=== PATIENT | male | born 1940 | race African-American/Black ===

== ENCOUNTER 2016-12-11 17:58 | Inpatient (IN) | payer MEDICARE ==
[~2016-12-11] VITALS: Ht 185.4 cm; Wt 67.3 kg
[2016-12-11] MEDS ORDERED: PANT40TA25 PO (18:42)
[2016-12-11] MEDS ORDERED: RANI150T7 PO (18:42)
[2016-12-11] MEDS ORDERED: METO25 PO (18:42)
[2016-12-11] MEDS ORDERED: LORazepam 2 MG/ML VIAL IM ONE (19:00)
[2016-12-11] MEDS ORDERED: HALOPERIDOL LACTATE 5 MG/ML VIAL IM ONE (19:00)
[2016-12-11] MEDS ORDERED: DiphenhydrAMINE HCL 50 MG/ML VIAL IM ONE (19:00)
[2016-12-11 19:14] LABS: BASOPHILS # (AUTO) 0.09 K/uL (0.00-0.20); EOSINOPHILS # (AUTO) 0.01 K/uL (0.00-0.70); EOSINOPHILS % (AUTO) 0.12 % (1.0-6.0); HEMATOCRIT 40.7 % (41-53); HEMOGLOBIN 14.1 g/dL (13.5-17.5); LYMPHOCYTES # (AUTO) 0.9 K/uL (1.0-4.8); LYMPHOCYTES % (AUTO) 10.8 % (22.0-44.0); MEAN CORPUSCULAR HGB CONC 34.6 G/dL (31.0-37.0); MEAN CORPUSCULAR VOLUME 84 fL (80-100); MONOCYTES # (AUTO) 0.7 K/uL (0.1-1.0); MONOCYTES % (AUTO) 8.7 % (2.0-9.0); NEUTROPHILS # (AUTO) 6.8 K/uL (1.8-7.7); NEUTROPHILS % (AUTO) 79.4 % (40.0-70.0); PLATELET COUNT (AUTO) 326 K/uL (150-450); RED BLOOD CELL COUNT(AUTO) 4.85 MIL/uL (4.50-5.90); RED CELL DISTRIBUTION WIDTH 14.3 % (11.5-14.5); WHITE BLOOD COUNT (AUTO) 8.6 K/uL (4.5-11.0)
[2016-12-11 19:26] LABS: ANION GAP 14 mmol/L (8-16); CALCIUM, TOTAL 8.9 mg/dL (8.8-10.5); CARBON DIOXIDE 23 mmol/L (22-29); CHLORIDE 99 mmol/L (98-107); CREATININE 1.69 mg/dL (0.60-1.30); GLOMERULAR FILTR. RATE CALC 48 mL/min (>60); POTASSIUM 4.3 mmol/L (3.5-5.1); SODIUM SERUM 136 mmol/L (136-145); UREA NITROGEN, BLOOD 39 mg/dL (7-18)
[2016-12-11 19:34] LABS: ALANINE AMINOTRANSFERASE 150 U/L (12-78); ASPARTATE AMINOTRANSFERASE 202 U/L (15-37); TOTAL PROTEIN, SERUM 8.2 g/dL (6.4-8.2)
[2016-12-11 21:05] LABS: APPEARANCE,URINE SLIGHTLY CLOUDY (CLEAR)
[2016-12-11 21:06] LABS: PH,URINE 5.5 (5.0-8.0)
[2016-12-11 21:07] LABS: ADD UA MICROSCOPIC YES; GLUCOSE, URINE (UA) NEGATIVE (NEGATIVE); KETONES,URINE 15 mg/dL (NEGATIVE); LEUKOCYTE ESTERASE ,URINE NEGATIVE (NEGATIVE); OCCULT BLOOD,URINE LARGE (NEGATIVE); PROTEIN,URINE TRACE (NEGATIVE)
[2016-12-11 21:17] LABS: HYALINE CASTS, URINE 0-2 /LPF (None Seen); RBC,URINE 51-100 /HPF (0-2)
[2016-12-11 21:28] LABS: WBC,URINE 0-2 /HPF (0-5)
[2016-12-11 22:49] LABS: LACTIC ACID 2.1 mmol/L (0.4-2.0)
[2016-12-11] MEDS ORDERED: CefTRIAXone SODIUM 2 GM in DEXTROSE 5%-WATER 50 ML IV ONE (23:15)
[2016-12-11] MEDS ORDERED: SODIUM CHLORIDE 0.9% 1,000 ML IV ONE (23:15)
[2016-12-11 23:55] LABS: REFLEX LACTIC ACID? YES YES
[2016-12-12] MEDS ORDERED: MAGNESIUM HYDROXIDE SUSPENSION 30 ML UDCUP PO PRN (05:30)
[2016-12-12] MEDS ORDERED: ONDANSETRON HCL 4 MG/2 ML VIAL IVP PRN (05:30)
[2016-12-12] MEDS ORDERED: OxyCODONE HCL/ACETAMINOPHEN 5-325 MG TABLET PO PRN (05:30)
[2016-12-12] MEDS ORDERED: BISACODYL 10 MG RECTAL RECTAL SUPPOSITORY PR PRN (05:30)
[2016-12-12] MEDS ORDERED: ACETAMINOPHEN 325 MG TABLET PO PRN (05:30)
[2016-12-12] MEDS: HEPARIN SODIUM,PORCINE 5,000 UNITS/ML VIAL SQ SCH ×2 (08:25→20:35)
[2016-12-12] MEDS: PANTOPRAZOLE SODIUM 40 MG DR TABLET PO SCH (08:25)
[2016-12-12 08:57] LABS: GLUCOSE,POINT OF CARE 112 MG/DL (70-110)
[2016-12-12 09:30] VITALS: BP 134/80
[2016-12-12 11:15] VITALS: BP 131/81
[2016-12-12] MEDS: METOPROLOL TARTRATE 25 MG TABLET PO SCH ×2 (11:18→20:26)
[2016-12-12] MEDS: NICOTINE 21 MG/24 HOUR PATCH TD SCH (11:18)
[2016-12-12 16:00] VITALS: BP 117/80
[2016-12-12 20:07] VITALS: BP 148/92
[2016-12-12] MEDS ORDERED: SODIUM CHLORIDE 0.9% 250 ML IV ONE (23:11)
[2016-12-12] MEDS: CefTRIAXone 1 GM/DEXTROSE 50 ML IV SCH (23:24)
[2016-12-12 23:59] VITALS: BP 119/64
[2016-12-13 05:21] VITALS: BP 126/75
[2016-12-13 06:56] LABS: BASOPHILS # (AUTO) 0.02 K/uL (0.00-0.20); BASOPHILS % (AUTO) 0.5 % (0.0-2.0); EOSINOPHILS % (AUTO) 1.97 % (1.0-6.0); HEMOGLOBIN 11.7 g/dL (13.5-17.5); LYMPHOCYTES # (AUTO) 1.2 K/uL (1.0-4.8); LYMPHOCYTES % (AUTO) 23.9 % (22.0-44.0); MEAN CORPUSCULAR HEMOGLOBIN 28.2 pg (26.0-34.0); MEAN CORPUSCULAR HGB CONC 33.3 G/dL (31.0-37.0); MEAN CORPUSCULAR VOLUME 85 fL (80-100); MONOCYTES # (AUTO) 0.6 K/uL (0.1-1.0); MONOCYTES % (AUTO) 12.3 % (2.0-9.0); NEUTROPHILS % (AUTO) 61.4 % (40.0-70.0); PLATELET COUNT (AUTO) 309 K/uL (150-450); RED BLOOD CELL COUNT(AUTO) 4.13 MIL/uL (4.50-5.90); RED CELL DISTRIBUTION WIDTH 14.6 % (11.5-14.5); WHITE BLOOD COUNT (AUTO) 4.9 K/uL (4.5-11.0)
[2016-12-13 07:19] LABS: ALANINE AMINOTRANSFERASE 101 U/L (12-78); ALBUMIN 2.2 g/dL (3.4-5.0); ANION GAP 7 mmol/L (8-16); ASPARTATE AMINOTRANSFERASE 91 U/L (15-37); BILIRUBIN,TOTAL 0.5 mg/dL (0.1-1.0); CALCIUM, TOTAL 8.1 mg/dL (8.8-10.5); CARBON DIOXIDE 24 mmol/L (22-29); CHLORIDE 107 mmol/L (98-107); CREATININE 1.11 mg/dL (0.60-1.30); GLOMERULAR FILTR. RATE CALC > 60 mL/min (>60); PHOSPHORUS 2.6 mg/dL (2.5-4.9); POTASSIUM 4.4 mmol/L (3.5-5.1); SODIUM SERUM 138 mmol/L (136-145); TOTAL PROTEIN, SERUM 6.5 g/dL (6.4-8.2); UREA NITROGEN, BLOOD 18 mg/dL (7-18)
[2016-12-13 07:38] VITALS: BP 123/71
[2016-12-13] MEDS: METOPROLOL TARTRATE 25 MG TABLET PO SCH ×2 (08:34→21:01)
[2016-12-13] MEDS: PANTOPRAZOLE SODIUM 40 MG DR TABLET PO SCH (08:34)
[2016-12-13] MEDS: HEPARIN SODIUM,PORCINE 5,000 UNITS/ML VIAL SQ SCH ×2 (08:36→21:02)
[2016-12-13] MEDS: NICOTINE 21 MG/24 HOUR PATCH TD SCH (09:00)
[2016-12-13 11:52] VITALS: BP 121/73
[2016-12-13 15:29] VITALS: BP 142/79
[2016-12-13 20:07] VITALS: BP 128/66
[2016-12-13 23:15] VITALS: BP 120/69
[2016-12-13] MEDS: CefTRIAXone 1 GM/DEXTROSE 50 ML IV SCH (23:59)
[2016-12-14 05:39] VITALS: BP 131/72
[2016-12-14 09:00] VITALS: BP 112/68
[2016-12-14] MEDS: NICOTINE 21 MG/24 HOUR PATCH TD SCH (09:20)
[2016-12-14] MEDS: HEPARIN SODIUM,PORCINE 5,000 UNITS/ML VIAL SQ SCH ×2 (09:20→20:08)
[2016-12-14] MEDS: PANTOPRAZOLE SODIUM 40 MG DR TABLET PO SCH (09:20)
[2016-12-14] MEDS: METOPROLOL TARTRATE 25 MG TABLET PO SCH ×2 (09:20→20:07)
[2016-12-14 12:06] VITALS: BP 109/70
[2016-12-14 15:04] LABS: HEPATITIS Bs ANTIGEN SCREEN P Negative (Negative); HEPATITIS C AB SCREEN <0.1 s/co ratio (0.0-0.9)
[2016-12-14 16:06] VITALS: BP 117/67
[2016-12-14] MEDS ORDERED: SODIUM CHLORIDE 3% 15 ML NEB SOLUTION NEB ONE (17:17)
[2016-12-14 20:00] VITALS: BP 109/68
[2016-12-14] MEDS: CefTRIAXone 1 GM/DEXTROSE 50 ML IV SCH (23:02)
[2016-12-14 23:21] VITALS: BP 107/61
[2016-12-15] MEDS ORDERED: 0.9% SODIUM CHLORIDE 5 ML NEB SOLUTION NEB ONE (04:51)
[2016-12-15 04:53] VITALS: BP 132/87
[2016-12-15] MEDS: ALBUTEROL SULFATE 2.5 MG/0.5 ML NEB SOLUTION NEB PRN ×2 (05:12→22:30)
[2016-12-15] MEDS: IPRATROPIUM BROMIDE 0.5 MG/2.5 ML NEB SOLUTION NEB PRN ×2 (05:12→22:30)
[2016-12-15 07:10] VITALS: BP 114/62
[2016-12-15] MEDS: PANTOPRAZOLE SODIUM 40 MG DR TABLET PO SCH (08:40)
[2016-12-15] MEDS: METOPROLOL TARTRATE 25 MG TABLET PO SCH ×2 (08:40→20:19)
[2016-12-15] MEDS: HEPARIN SODIUM,PORCINE 5,000 UNITS/ML VIAL SQ SCH ×2 (08:40→20:19)
[2016-12-15] MEDS: NICOTINE 21 MG/24 HOUR PATCH TD SCH (08:40)
[2016-12-15 11:15] VITALS: BP 124/71
[2016-12-15 16:09] VITALS: BP 123/77
[2016-12-15] MEDS: HYDROCORTISONE 0.5% 30 GM CREAM TP PRN (17:59)
[2016-12-15 20:00] VITALS: BP 119/77
[2016-12-15] MEDS ORDERED: SODIUM CHLORIDE 3% 15 ML NEB SOLUTION NEB ONE (22:16)
[2016-12-15] MEDS: CefTRIAXone 1 GM/DEXTROSE 50 ML IV SCH (23:03)
[2016-12-16] VITALS: BP 119/62
[2016-12-16 03:01] VITALS: BP 122/77
[2016-12-16] MEDS: PANTOPRAZOLE SODIUM 40 MG DR TABLET PO SCH (08:17)
[2016-12-16] MEDS: METOPROLOL TARTRATE 25 MG TABLET PO SCH ×2 (08:17→20:56)
[2016-12-16] MEDS: HEPARIN SODIUM,PORCINE 5,000 UNITS/ML VIAL SQ SCH ×2 (08:17→20:56)
[2016-12-16] MEDS: HYDROCORTISONE 0.5% 30 GM CREAM TP PRN (08:20)
[2016-12-16] MEDS: NICOTINE 21 MG/24 HOUR PATCH TD SCH (08:26)
[2016-12-16 08:29] VITALS: BP 157/89
[2016-12-16 11:15] VITALS: BP 133/71
[2016-12-16 16:04] VITALS: BP 144/74
[2016-12-16] MEDS: CefTRIAXone 1 GM/DEXTROSE 50 ML IV SCH (22:21)
[2016-12-17 00:08] VITALS: BP 112/65
[2016-12-17 04:29] VITALS: BP 129/78
[2016-12-17 07:22] VITALS: BP 155/94
[2016-12-17] MEDS: HEPARIN SODIUM,PORCINE 5,000 UNITS/ML VIAL SQ SCH ×2 (08:06→21:06)
[2016-12-17] MEDS: METOPROLOL TARTRATE 25 MG TABLET PO SCH ×2 (08:06→21:06)
[2016-12-17] MEDS: PANTOPRAZOLE SODIUM 40 MG DR TABLET PO SCH (08:06)
[2016-12-17] MEDS: NICOTINE 21 MG/24 HOUR PATCH TD SCH (09:00)
[2016-12-17 11:36] VITALS: BP 119/72
[2016-12-17 15:20] VITALS: BP 119/63
[2016-12-17 19:15] VITALS: BP 130/84
[2016-12-17] MEDS: CefTRIAXone 1 GM/DEXTROSE 50 ML IV SCH (23:00)
[2016-12-18 00:55] VITALS: BP 109/70
[2016-12-18 04:17] VITALS: BP 129/76
[2016-12-18 08:40] VITALS: BP 133/81
[2016-12-18] MEDS: NICOTINE 21 MG/24 HOUR PATCH TD SCH (09:34)
[2016-12-18] MEDS: METOPROLOL TARTRATE 25 MG TABLET PO SCH (09:34)
[2016-12-18] MEDS: HEPARIN SODIUM,PORCINE 5,000 UNITS/ML VIAL SQ SCH (09:35)
[2016-12-18] MEDS: PANTOPRAZOLE SODIUM 40 MG DR TABLET PO SCH (09:47)
[2016-12-18 11:00] VITALS: BP 127/98
== END 2016-12-18 14:10 | disposition home or self-care (01) | DRG 682 ==
LOC: EMS 18:01 → 6N 12-12 06:28
PROVIDERS: ADMIT Internal Medicine; ATTEND Internal Medicine
DX: N17.0 Acute kidney failure with tubular necrosis (principal); E43 Unspecified severe protein-calorie malnutrition; N39.0 Urinary tract infection, site not specified; Z68.1 Body mass index [BMI] 19.9 or less, adult; I10 Essential (primary) hypertension; Z20.1 Contact with and (suspected) exposure to tuberculosis; M19.90 Unspecified osteoarthritis, unspecified site; E11.9 Type 2 diabetes mellitus without complications; K21.9 Gastro-esophageal reflux disease without esophagitis; F12.10 Cannabis abuse, uncomplicated; F10.10 Alcohol abuse, uncomplicated; J40 Bronchitis, not specified as acute or chronic; E88.09 Other disorders of plasma-protein metabolism, not elsewhere classified; F17.210 Nicotine dependence, cigarettes, uncomplicated; F29 Unspecified psychosis not due to a substance or known physiological condition; D64.9 Anemia, unspecified; Z79.899 Other long term (current) drug therapy; Z79.84 Long term (current) use of oral hypoglycemic drugs
CPT/HCPCS: 51701; 70450; 80074; 82962; 83605; 83735; 84100; 87015; 87086; 87149; 94640; 96365; 96372; 99285; G0480; J0696; J1200; J1630; J1644; J2060; J7030; J7050; J7060

== ENCOUNTER → 2018-10-29 | Outpatient (CLI) | payer OTHER ==
[~2018-10-29] MED LIST: METO25 PO; PANT40TA25 PO; RANI150T7 PO
== END | disposition home or self-care (01) ==
LOC: RADPV 09:21
PROVIDERS: ATTEND Internal Medicine
DX: R00.1 Bradycardia, unspecified (principal)
CPT/HCPCS: 93306